=== PATIENT | female | born 1950 ===

== ENCOUNTER 2017-10-28 13:44 | Outpatient (CLI) | payer OTHER | END 2017-10-28 14:16 | disposition home or self-care (01) | LOC: NUCLEAR 13:44 | DX: E11.51 Type 2 diabetes mellitus with diabetic peripheral angiopathy without gangrene (principal); I87.2 Venous insufficiency (chronic) (peripheral) ==

== ENCOUNTER 2017-10-28 14:25 | Outpatient (CLI) | payer OTHER | END 2017-10-28 15:39 | disposition home or self-care (01) | LOC: RAD 14:25 | DX: J32.8 Other chronic sinusitis (principal) ==

== ENCOUNTER 2021-05-26 08:00 | Outpatient (CLI) | payer OTHER | END 2021-05-26 08:30 | disposition home or self-care (01) | LOC: PPH VACUNA 08:00 | PROVIDERS: ATTEND Emergency Medicine Pediatric Emergency Medicine | DX: Z23 Encounter for immunization (principal) ==

== ENCOUNTER 2022-12-24 09:39 | Outpatient (CLI) | payer OTHER | END 2022-12-24 09:50 | disposition home or self-care (01) | LOC: TOM 09:39 | PROVIDERS: ATTEND Otolaryngology Otology & Neurotology | DX: J32.3 Chronic sphenoidal sinusitis (principal); J34.2 Deviated nasal septum ==

== ENCOUNTER 2023-07-20 08:38 | Outpatient (CLI) | payer OTHER | END 2023-07-20 08:55 | disposition home or self-care (01) | LOC: TOM 08:38 | DX: R10.9 Unspecified abdominal pain (principal); R10.2 Pelvic and perineal pain | CPT/HCPCS: 74178; Q9965 ==

== ENCOUNTER 2024-11-14 12:00 | Outpatient (CLI) | payer OTHER | END 2024-11-14 12:15 | disposition home or self-care (01) | LOC: MAMO-SONO 12:00 | DX: N60.11 Diffuse cystic mastopathy of right breast (principal); N60.12 Diffuse cystic mastopathy of left breast; Z12.31 Encounter for screening mammogram for malignant neoplasm of breast ==